=== PATIENT | female | born 1985 | race Caucasian/White ===

== ENCOUNTER → 2019-10-09 | Outpatient (CLI) | payer OTHER ==
[2019-10-10 13:59] LABS: FREE T4 1.33 ng/dL (0.76-1.46); THYROID STIM HORMONE (TSH) 2.03 uIU/mL (0.358-3.740)
== END | disposition home or self-care (01) ==
LOC: LAB 15:57
PROVIDERS: ATTEND Nurse Practitioner Women's Health
DX: E03.9 Hypothyroidism, unspecified (principal)
CPT/HCPCS: 36415; 84439; 84443; 86800

== ENCOUNTER 2019-10-21 10:30 | Emergency (ER) | payer OTHER ==
[~2019-10-21] VITALS: Ht 162.6 cm; Wt 90.9 kg
[2019-10-21] MEDS ORDERED: IV NORMAL SALINE 1,000ML 1,000 ML IV SCH (10:40)
--- NOTE | 2019-10-21 10:42 | PHYS DOC ---
Past History Past Medical History: Anemia, Bipolar, Depression, GERD, High Cholesterol, Hypertension, Hyperthyroid Past Surgical History: Cholecystectomy, , Tubal ligation Smoking: Non-smoker Alcohol Use: Rarely Drug Use: None General Adult EDM: Chief Complaint: NAUSEA/VOMITING/DIARRHEA HPI: HPI: Patient is a 33 year old female who presents for evaluation of mid and upper abdominal discomfort as well as recurring episodes of vomiting. Patient states she is had a recent fever but no chills. Furthermore she has had an ongoing chronic cough. Patient was seen by her doctor earlier this past week for similar complaints. She states that she was constipated was given both a fleets enema and magnesium citrate. She states that those did not resolve her symptoms. Patient denies being exposed anybody with known coinfection. She states she last had a COVID test about 10 days ago and was negative. Patient was hypertensive in triage. Patient is anxious and has a history of bipolar disorder Review of Systems: Review of Systems: Constitutional: has fever no chills Eyes: Denies change in visual acuity HENT: has nasal congestion but no sore throat Respiratory: has acute on chronic cough and shortness of breath Cardiovascular: has chest pressure but no edema GI: mid and upper abdominal pain with nausea and vomiting, no bloody stools or diarrhea : Denies dysuria Musculoskeletal: Denies back pain or joint pain Integument: Denies rash Neurologic: Denies headache, focal weakness or sensory changes Endocrine: Denies polyuria or polydipsia Lymphatic: Denies swollen glands Psychiatric: has depression and anxiety Heart Score: HEART Score for Chest Pain: HEART Score for Chest Pain Response (Comments) Value History Slighlty/Non-Suspicious 0 ECG Normal 0 Age < 45 0 Risk Factors 1 or 2 Risk Factors 1 Troponin < Normal Limit 0 Total 1 Risk Factors: Risk Factors: DM, Current or recent (<one month) smoker, HTN, HLP, family history of CAD, obesity. Risk Scores: Score 0 - 3: 2.5% MACE over next 6 weeks - Discharge Home Score 4 - 6: 20.3% MACE over next 6 weeks - Admit for Clinical Observation Score 7 - 10: 72.7% MACE over next 6 weeks - Early Invasive Strategies Allergies: Allergies: Allergies Coded Allergies Type Severity Reaction Last Updated Verified No Known Drug Allergies 10/21/19 No Physical Exam: PE: Constitutional: Well developed, well nourished, mild acute distress, non-toxic appearance. [] HENT: Normocephalic, atraumatic, bilateral external ears normal, oropharynx moist, no oral exudates, nose normal. [] Eyes: PERRL, EOMI, conjunctiva normal, no discharge. [] Neck: Normal range of motion, no tenderness, supple, no stridor. [] Cardiovascular:Heart rate regular rhythm, no murmur [] Lungs & Thorax: Bilateral breath sounds clear to auscultation [] Abdomen: Bowel sounds normal, soft, mild mid and epigastric tenderness, no masses, no pulsatile masses. [] Skin: Warm, dry, no erythema, no rash. [] Back: No tenderness. [] Extremities: No tenderness, no cyanosis, ROM intact, no edema. [] Neurologic: Alert and oriented X 3, normal motor function, normal sensory function, no focal deficits noted. [] Psychologic: Affect normal, judgement normal, mood abnormal. [] Current Patient Data: Labs: Laboratory Tests Test 10/21/19 11:00 10/21/19 11:39 Sodium Level 138 mmol/L Potassium Level 4.0 mmol/L Chloride Level 104 mmol/L Carbon Dioxide Level 24 mmol/L Anion Gap 10 Blood Urea Nitrogen 13 mg/dL Creatinine 1.2 mg/dL Estimated GFR (Cockcroft-Gault) 51.7 BUN/Creatinine Ratio 11 Glucose Level 115 mg/dL Calcium Level 8.9 mg/dL Total Bilirubin 0.2 mg/dL Aspartate Amino Transf (AST/SGOT) 23 U/L Alanine Aminotransferase (ALT/SGPT) 37 U/L Alkaline Phosphatase 117 U/L Total Protein 7.8 g/dL Albumin 3.6 g/dL Albumin/Globulin Ratio 0.9 Lipase 68 U/L Serum Test, Qualitative Negative White Blood Count 8.7 x10^3/uL Red Blood Count 4.93 x10^6/uL Hemoglobin 12.0 g/dL Hematocrit 37.7 % Mean Corpuscular Volume 76 fL Mean Corpuscular Hemoglobin 24 pg Mean Corpuscular Hemoglobin Concent 32 g/dL Red Cell Distribution Width 15.2 % Platelet Count 248 x10^3/uL Neutrophils (%) (Auto) 65 % Lymphocytes (%) (Auto) 23 % Monocytes (%) (Auto) 8 % Eosinophils (%) (Auto) 3 % Basophils (%) (Auto) 1 % Neutrophils # (Auto) 5.7 x10^3uL Lymphocytes # (Auto) 2.0 x10^3/uL Monocytes # (Auto) 0.7 x10^3/uL Eosinophils # (Auto) 0.3 x10^3/uL Basophils # (Auto) 0.0 x10^3/uL Current Medications Medications (Trade) Dose Ordered Sig/Laura Route PRN Reason Start Time Stop Time Status Last Admin Dose Admin Sodium Chloride 1,000 ml @ 1,000 mls/hr Q1H IV 10/21/19 10:40 10/21/19 11:39 DC 10/21/19 10:48 Ondansetron HCl (Zofran) 4 mg 1X ONCE IVP 10/21/19 10:45 10/21/19 10:57 DC 10/21/19 10:48 Pantoprazole Sodium (Protonix Vial) 40 mg 1X ONCE IVP 10/21/19 10:45 10/21/19 10:57 DC 10/21/19 10:48 EKG: EKG: [] Radiology/Procedures: Radiology/Procedures: [place] [address] IMAGING REPORT Signed PATIENT: REGINA SHETHCOUNT: [id number] : 1985 LOCATION: ER AGE: 33 SEX: F EXAM STATUS: REG ER ORD. PHYSICIAN: ECTOR SHEARER DO REASON: abd pain, vomiting, cough PROCEDURE: ACUTE ABDOMEN SERIES Examination: ACUTE ABDOMEN SERIES History: Reason: abd pain, vomiting, cough / Spl. Instructions: / History: Comparison/Correlation: None Findings: Frontal view chest is obtained. Supine and upright views of the abdomen were obtained. Heart size and pulmonary vasculature are normal. No pneumothorax or infiltrate. No pleural effusion. Right upper quadrant surgical clips are present. Moderate quantity of stool in the bowel is noted. No significant fluid levels in bowel. No bowel obstruction. No suspicious abdominal calcification. Left pelvic calcification probably represents a phlebolith. Surgical clip overlies the L4 vertebral body level on the left. No subdiaphragmatic extraluminal gas. Impression: No infiltrate. No bowel obstruction. Electronically signed by: Smith Ogden MD (10/21/2019 11:21 AM) [id number] DICTATED AND SIGNED BY: SMITH OGDEN MD DATE: 10/21/19 112 CC: PCP,[facility]OSS; ECTOR SHEARER DO ~ [] Course & Med Decision Making: Course & Med Decision Making Pertinent Labs and Imaging studies reviewed. (See chart for details) [] Dragon Disclaimer: Dragon Disclaimer: This electronic medical record was generated, in whole or in part, using a voice recognition dictation system. 1210 patient stable. She she urinated on her own without collecting a sample since arrival. We will attempt again to get another urine sample Departure Departure: Impression: Primary Impression: Acute bronchitis Qualified Codes: J20.9 - Acute bronchitis, unspecified Additional Impressions: Acute urinary tract infection Upper abdominal pain Nausea & vomiting Qualified Codes: R11.2 - Nausea with vomiting, unspecified Disposition: 01 HOME/RESIDENCE PRIOR TO ADM Condition: STABLE Referrals: [facility] (PCP) Patient Instructions: Abdominal Pain (Nonspecific), Bronchitis, Nausea and Vomiting, Urinary Tract Infection Additional Instructions: [place] diet, no spicy foods, continue your Protonix. Take your nausea medication and bladder infection medication as directed. Your COVID swab tests are pending. Follow protocol directions until those results are knownYou have been tested for or diagnosed with COVID-19. It is an infection caused by a new type of coronavirus. COVID-19 will cause cold-like or mild flu symptoms in most. It can cause more severe symptoms like problems breathing in some. There is no treatment for COVID-19. The body will clear the infection over time. Self-care will help to ease discomfort. Steps to Take: Self-Care Rest as needed. Healthy habits may help you feel better. Steps include: Choose healthy foods including fruits and vegetables. Drink water throughout the day. Get plenty of sleep each night. If you smoke, try to quit. It may ease breathing. Avoid alcohol. Keep Others Healthy The virus can spread to others. Droplets are released every time you sneeze or cough. The droplets can get into the mouth, nose, or eyes of people near you and lead to infection. To lower the chances of spreading COVID-19 to others: Stay at home until your doctor has said it is safe to leave. If you tested positive this will mean staying isolated until both of the following are true: At least 7 days have passed since the start of illness. You are free of fever for at least 72 hours without the use of medicine. During this time: - Avoid public areas, events, or transportation. Do not return to work or school until your doctor has said it is safe to do so. - Call ahead if you need to go to a medical center. Let them know you may have COVID-19. It will help them guide you where to go. They may also ask you to wear a facemask when you come to the office. - If you call for emergency medical services, let them know you may have COVID- 19. While at home: - Try to avoid close contact with others. Stay about 6 feet away. - If possible, spend most of your time in a separate room from others. - Use a face mask if you will be in close contact with others such as sharing a room or vehicle. - Have someone wipe down common surfaces in the home. Use household wireless consultant every day on areas like doorknobs, counters, or sinks. - Cough or sneeze into a tissue. Throw the tissue away right after use. If a tissue is not available, cough or sneeze into your elbow. - Wash your hands often. Wash them after sneezing or coughing. Use soap and water and wash for at least 20 seconds. Alcohol based hand venetian blind cleaner and repairer can be used if soap and water is not available. - Do not prepare food for others. Avoid sharing personal items like forks, spoons, or toothbrushes. - Avoid close contact with pets while you are sick. There is no evidence of the virus passing to pets. This is a safety step until more is known about this virus. Isolation can be frustrating. Social interaction can help. Keep in touch with friends and family through phone and tech options. You can still interact with others in your home, just keep a safe distance of about 6 feet. Follow-up: Your doctors office will check in with you to see if there are any changes in your health. You may be asked to keep track of symptoms to share with them. They will also let you know when you are clear to be in public again. Problems to Look Out For: Contact your doctor if your recovery is not going as you expect. Get emergency care if you have problems such as: - Trouble breathing - Nonstop chest pain or pressure - Changes in awareness, confusion, or problems waking - Lips or face have bluish color - Worsening of symptoms If you think you have an emergency, call for emergency medical services right away. As taken from [facility] Cephalexin (CEPHALEXIN) 500 Mg Capsule 1 CAP PO QID for UTI , #28 CAP Prov: ECTOR SHEARER DO 10/21/19 Benzonatate (TESSALON PERLE) 100 Mg Capsule 1 CAP PO TID for cough, #21 CAP Prov: ECTOR SHEARER DO 10/21/19 Ondansetron Hcl (ZOFRAN) 4 Mg Tablet 1 TAB PO PRN Q6HRS PRN for NAUSEA, #8 TAB Prov: ECTOR SHEARER DO 10/21/19 Justification of Admission: Justification of Admission: Justification of Admission Dx: N/A COVID-19 Assessment COVID-19 Patient Risks: Age 65 or older: No Sign of co-morbidity: Yes Exp to person + for COVID: No Exp to PUI: No Travel from affected area: No Lower respiratory symptoms: Yes Fever: Yes Other: No PPE Use: Full PPE with N95 mask or PAPR: Yes ECTOR SHEARER DO Oct 21, 2019 10:42
[2019-10-21] MEDS ORDERED: PANTOPRAZOLE IV 40 MG VIAL. IVP ONE (10:45)
[2019-10-21] MEDS ORDERED: ONDANSETRON PF 4 MG/2 ML VIAL. IVP ONE (10:45)
--- NOTE | 2019-10-21 11:25 | RAD ---
Examination: ACUTE ABDOMEN SERIES History: Reason: abd pain, vomiting, cough / Spl. Instructions: / History: Comparison/Correlation: None Findings: Frontal view chest is obtained. Supine and upright views of the abdomen were obtained. Heart size and pulmonary vasculature are normal. No pneumothorax or infiltrate. No pleural effusion. Right upper quadrant surgical clips are present. Moderate quantity of stool in the bowel is noted. No significant fluid levels in bowel. No bowel obstruction. No suspicious abdominal calcification. Left pelvic calcification probably represents a phlebolith. Surgical clip overlies the L4 vertebral body level on the left. No subdiaphragmatic extraluminal gas. Impression: No infiltrate. No bowel obstruction. Electronically signed by: Smith Watson MD (10/21/2019 11:21 AM) [id number]
[2019-10-21 11:28] LABS: CALCIUM 8.9 mg/dL (8.5-10.1); CREATININE 1.2 mg/dL (0.6-1.0); GFR 51.7
[2019-10-21 11:33] LABS: PREG TEST PT QUAL NEGATIVE (NEG)
[2019-10-21 11:34] LABS: ALBUMIN 3.6 g/dL (3.4-5.0); ALBUMIN/GLOBULIN RATIO 0.9 (1.0-1.7); TOTAL BILIRUBIN 0.2 mg/dL (0.2-1.0); TOTAL PROTEIN 7.8 g/dL (6.4-8.2)
[2019-10-21 11:40] VITALS: BP 168/130
[2019-10-21 11:56] LABS: BASO % 1 % (0-3); EOS # 0.3 x10^3/uL (0.0-0.7); EOS % 3 % (0-3); HEMATOCRIT 37.7 % (36.0-47.0); LYMPH % 23 % (24-48); MEAN CORPUSCULAR HEMOGLOBIN 24 pg (25-35); MEAN CORPUSCULAR HGB CONC 32 g/dL (31-37); MEAN CORPUSCULAR VOLUME 76 fL (79-100); MONO # 0.7 x10^3/uL (0.0-1.1); MONO % 8 % (0-9); NEUT # 5.7 x10^3uL (1.8-7.7); NEUT % 65 % (31-73); PLATELET COUNT 248 x10^3/uL (140-400); RED BLOOD COUNT 4.93 x10^6/uL (3.50-5.40); RED CELL DISTRIBUTION WIDTH 15.2 % (11.5-14.5); WHITE BLOOD COUNT 8.7 x10^3/uL (4.0-11.0)
[2019-10-21 13:03] LABS: BILIRUBIN,URINE NEG (NEG); CLARITY,URINE HAZY; COLOR,URINE YELLOW; GLUCOSE,URINE NEG (NEG); NITRITE,URINE NEG (NEG); UROBILINOGEN,URINE 0.2 mg/dL (0.2 mg/dL)
[2019-10-21] MEDS ORDERED: BENZ100C PO (13:46)
[2019-10-21] MEDS ORDERED: CEPH500C PO (13:46)
[2019-10-21] MEDS ORDERED: ONDA4TAB7 PO (13:46)
== END 2019-10-21 13:51 | disposition home or self-care (01) ==
LOC: ER 10:30
DX: J20.9 Acute bronchitis, unspecified (principal); N39.0 Urinary tract infection, site not specified; R11.2 Nausea with vomiting, unspecified; K21.9 Gastro-esophageal reflux disease without esophagitis; E78.00 Pure hypercholesterolemia, unspecified; I10 Essential (primary) hypertension; E03.9 Hypothyroidism, unspecified; Z20.828 Contact with and (suspected) exposure to other viral communicable diseases; Z86.2 Personal history of diseases of the blood and blood-forming organs and certain disorders involving the immune mechanism; Z90.49 Acquired absence of other specified parts of digestive tract; Z98.890 Other specified postprocedural states; Z98.51 Tubal ligation status
CPT/HCPCS: 36415; 74022; 80053; 81003; 83690; 84703; 85025; 96361; 96374; 96375; 99284; C9113; J2405; J7030; U0003

== ENCOUNTER 2019-11-19 07:52 | Emergency (ER) | payer OTHER ==
[~2019-11-19] VITALS: Ht 162.6 cm; Wt 90.0 kg
[~2019-11-19 07:52] MED LIST: BENZ100C PO; CEPH500C PO; ONDA4TAB7 PO
--- NOTE | 2019-11-19 08:09 | PHYS DOC ---
Past History Past Medical History: Anemia, Bipolar, Depression, GERD, High Cholesterol, Hypertension, Hyperthyroid Past Surgical History: Cholecystectomy, , Tubal ligation Smoking: Non-smoker Alcohol Use: None Drug Use: None General Adult EDM: Chief Complaint: CHEST PAIN HPI: HPI: 34-year-old female with past medical history significant for hypertension and anxiety presents secondary to complaint of chest pain. The patient reports that yesterday while driving with some friends she started to develop a sensation of warmth go through her body along with some tingling. She experience some chest tightness. She states that she has had these symptoms on and off since last night and this morning is still complaining of some mild chest pressure. No medications were taken prior to arrival. The patient states she is not short of breath and denies being anxious. Review of Systems: Review of Systems: All other systems negative except as documented in HPI. Heart Score: HEART Score for Chest Pain: HEART Score for Chest Pain Response (Comments) Value History Slighlty/Non-Suspicious 0 Age < 45 0 Risk Factors 1 or 2 Risk Factors 1 Total 1 Risk Factors: Risk Factors: DM, Current or recent (<one month) smoker, HTN, HLP, family history of CAD, obesity. Risk Scores: Score 0 - 3: 2.5% MACE over next 6 weeks - Discharge Home Score 4 - 6: 20.3% MACE over next 6 weeks - Admit for Clinical Observation Score 7 - 10: 72.7% MACE over next 6 weeks - Early Invasive Strategies Allergies: Allergies: Allergies Coded Allergies Type Severity Reaction Last Updated Verified No Known Drug Allergies 10/21/19 No Physical Exam: PE: Constitutional: Well developed, well nourished, no acute distress, non-toxic appearance. [] HENT: Normocephalic, atraumatic, bilateral external ears normal, oropharynx moist, no oral exudates, nose normal. [] Eyes: PERRLA, EOMI, conjunctiva normal, no discharge. [] Neck: Normal range of motion, no tenderness, supple, no stridor. [] Cardiovascular:Heart rate regular rhythm, no murmur [] Lungs & Thorax: Bilateral breath sounds clear to auscultation [] Abdomen: Bowel sounds normal, soft, no tenderness, no masses, no pulsatile masses. [] Skin: Warm, dry, no erythema, no rash. [] Back: No tenderness, no CVA tenderness. [] Extremities: No tenderness, no cyanosis, no clubbing, ROM intact, no edema. [] Neurologic: Alert and oriented X 3, normal motor function, normal sensory function, no focal deficits noted. [] Psychologic: Affect normal, judgement normal, mood normal. [] EKG: EKG: EKG shows a normal sinus rhythm without ST changes, ventricular rate of 80, normal intervals. Radiology/Procedures: Radiology/Procedures: Chest x-ray negative. Course & Med Decision Making: Course & Med Decision Making Pertinent Labs and Imaging studies reviewed. (See chart for details) 0808: Patient seen for chest discomfort. Her symptoms are rather vague but gi jesse her history of hypertension and obesity will work her up for cardiac etiology. Give aspirin. EKG is normal. This sounds more like an anxiety attack potentially. 0921: Work-up is negative. Patient will be discharged home at this time as she has no evidence of cardiac abnormality. Recommend rest and taking antianxiety medication when she gets home. Barney Disclaimer: Barney Disclaimer: This electronic medical record was generated, in whole or in part, using a voice recognition dictation system. Departure Departure: Impression: Primary Impression: Non-cardiac chest pain Disposition: 01 HOME/RESIDENCE PRIOR TO ADM Condition: STABLE Referrals: JUANIS GAMINO (PCP) Follow-up for ongoing discomfort Patient Instructions: Chest Pain (Nonspecific) Additional Instructions: Recommend rest and taking your antianxiety medication when you get home. Justification of Admission: Justification of Admission: Justification of Admission Dx: N/A LILLI MICHAUD DO Nov 19, 2019 08:09
--- NOTE | 2019-11-19 08:11 | EKG ---
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
[2019-11-19] MEDS ORDERED: ASPIRIN CHEWABLE 81 MG TABLET. PO ONE (08:15)
[2019-11-19 08:32] LABS: BASO # 0.1 x10^3/uL (0.0-0.2); BASO % 1 % (0-3); EOS # 0.2 x10^3/uL (0.0-0.7); EOS % 3 % (0-3); HEMOGLOBIN 12.2 g/dL (12.0-15.5); LYMPH # 2.2 x10^3/uL (1.0-4.8); LYMPH % 24 % (24-48); MEAN CORPUSCULAR HEMOGLOBIN 24 pg (25-35); MEAN CORPUSCULAR HGB CONC 32 g/dL (31-37); MEAN CORPUSCULAR VOLUME 76 fL (79-100); MONO # 0.7 x10^3/uL (0.0-1.1); MONO % 8 % (0-9); NEUT % 65 % (31-73); PLATELET COUNT 255 x10^3/uL (140-400); RED CELL DISTRIBUTION WIDTH 15.8 % (11.5-14.5); WHITE BLOOD COUNT 9.2 x10^3/uL (4.0-11.0)
[2019-11-19 08:41] LABS: ANION GAP 7 (6-14); BLOOD UREA NITROGEN 13 mg/dL (7-20); CARBON DIOXIDE 28 mmol/L (21-32); CHLORIDE 104 mmol/L (98-107); GFR 63.5; GLUCOSE 110 mg/dL (70-99); POTASSIUM 3.7 mmol/L (3.5-5.1); SODIUM 139 mmol/L (136-145)
[2019-11-19 08:43] VITALS: BP 154/100
[2019-11-19 08:58] LABS: LIPASE 49 U/L (73-393); MAGNESIUM 2.1 mg/dL (1.8-2.4)
--- NOTE | 2019-11-19 09:00 | RAD ---
EXAM: Chest radiograph 11/19/2019 8:03 AM CLINICAL INDICATION: Chest pain, cough COMPARISON: Abdominal series radiograph 10/21/2019 TECHNIQUE: AP upright view of the chest FINDINGS: The heart and mediastinum are normal. Lungs are well-expanded and clear. No consolidation, pleural effusion, or pneumothorax. Pulmonary vascularity is normal. The thoracic skeleton is intact. IMPRESSION: Normal chest radiograph. Electronically signed by: Chio Tello MD (11/19/2019 8:58 AM) [id number]
[2019-11-19 09:29] LABS: BARBITURATES NEG (NEG); BENZODIAZEPINES NEG (NEG); CANNABINOIDS POS (NEG); COCAINE NEG (NEG); METHADONE NEG (NEG); OPIATES NEG (NEG); PHENCYCLIDINE NEG (NEG)
[2019-11-19 09:31] LABS: AMPHETAMINE/METHAMPHETAMINE NEG (NEG)
== END 2019-11-19 09:40 | disposition home or self-care (01) ==
LOC: ER 07:52
DX: R07.89 Other chest pain (principal); F31.9 Bipolar disorder, unspecified; K21.9 Gastro-esophageal reflux disease without esophagitis; E78.00 Pure hypercholesterolemia, unspecified; I10 Essential (primary) hypertension; E03.9 Hypothyroidism, unspecified; Z86.2 Personal history of diseases of the blood and blood-forming organs and certain disorders involving the immune mechanism
CPT/HCPCS: 36415; 71045; 80048; 80307; 81025; 82553; 83690; 83735; 83874; 83880; 84484; 85025; 85610; 85730; 93005; 99285

== ENCOUNTER 2019-11-29 21:17 | Emergency (ER) | payer OTHER ==
[~2019-11-29] VITALS: Ht 162.6 cm; Wt 90.0 kg
[2019-11-29] MEDS ORDERED: KETOROLAC 30 MG/ML VIAL. IM ONE (22:00)
--- NOTE | 2019-11-29 22:28 | PHYS DOC ---
Past History Past Medical History: High Cholesterol, Heart Disease, Hypertension Past Surgical History: No Surgical History Smoking: Non-smoker Alcohol Use: None Drug Use: None General Adult EDM: Chief Complaint: RIB PAIN HPI: HPI: Patient is a 34 year old female who presents for evaluation of left-sided chest and rib area pain. Onset of symptoms over the past 24 hours. She states it is worse with movement. Patient has had a chronic cough "for months". Patient has had multiple negative COVID swabs last one being 2 to 3 weeks ago. Her vital signs are otherwise stable. Patient has had multiple work-ups for similar complaints over the past 2 weeks. She has had repeated normal EKG studies. Patient is been diagnosed with panic attacks. Patient's last period was November 11. Patient is nontoxic-appearing. Patient furthermore has a history of acid reflux and is on Protonix and Tums. Patient does not have a gallbladder. Review of Systems: Review of Systems: Constitutional: Denies fever or chills Eyes: Denies change in visual acuity HENT: Denies nasal congestion or sore throat Respiratory: has cough no shortness of breath Cardiovascular: left sided chest pain no edema GI: left upper abdominal pain, no nausea or vomiting, no bloody stools or diarrhea : Denies dysuria Musculoskeletal: Denies back pain or joint pain Integument: Denies rash Neurologic: Denies headache, focal weakness or sensory changes Endocrine: Denies polyuria or polydipsia Lymphatic: Denies swollen glands Psychiatric: has anxiety Heart Score: Risk Factors: Risk Factors: DM, Current or recent (<one month) smoker, HTN, HLP, family history of CAD, obesity. Risk Scores: Score 0 - 3: 2.5% MACE over next 6 weeks - Discharge Home Score 4 - 6: 20.3% MACE over next 6 weeks - Admit for Clinical Observation Score 7 - 10: 72.7% MACE over next 6 weeks - Early Invasive Strategies Current Medications: Current Meds: Current Medications Medications (Trade) Dose Ordered Sig/Laura Start Time Stop Time Status Last Admin Dose Admin Ketorolac Tromethamine (Toradol 30mg Vial) 30 mg 1X ONCE 11/29/19 22:00 11/29/19 22:01 DC 11/29/19 22:00 30 MG Allergies: Allergies: Allergies Coded Allergies Type Severity Reaction Last Updated Verified No Known Drug Allergies 10/21/19 No Physical Exam: PE: Constitutional: Well developed, well nourished, mild acute distress, non-toxic appearance. [] HENT: Normocephalic, atraumatic, bilateral external ears normal, oropharynx moist, no oral exudates, nose normal. [] Eyes: PERRL, EOMI, conjunctiva normal, no discharge. [] Neck: Normal range of motion, no tenderness, supple, no stridor. [] Cardiovascular:Heart rate regular rhythm, no murmur [] Lungs & Thorax: Bilateral breath sounds clear to auscultation [] Abdomen: Bowel sounds normal, soft, minimal left upper abdominal tenderness, no masses, no pulsatile masses. [] Skin: Warm, dry, no erythema, no rash. [] Back: No tenderness, no CVA tenderness. [] Extremities: No tenderness, no cyanosis, ROM intact, no edema. [] Neurologic: Alert and oriented X 3, normal motor function, normal sensory function, no focal deficits noted. [] Psychologic: Affect normal, judgement normal, mood mild anxious. [] Current Patient Data: Labs: Laboratory Tests Test 11/29/19 22:05 White Blood Count 8.6 x10^3/uL Red Blood Count 4.62 x10^6/uL Hemoglobin 11.1 g/dL Hematocrit 35.5 % Mean Corpuscular Volume 77 fL Mean Corpuscular Hemoglobin 24 pg Mean Corpuscular Hemoglobin Concent 31 g/dL Red Cell Distribution Width 15.5 % Platelet Count 261 x10^3/uL Neutrophils (%) (Auto) 61 % Lymphocytes (%) (Auto) 28 % Monocytes (%) (Auto) 7 % Eosinophils (%) (Auto) 3 % Basophils (%) (Auto) 1 % Neutrophils # (Auto) 5.2 x10^3uL Lymphocytes # (Auto) 2.4 x10^3/uL Monocytes # (Auto) 0.6 x10^3/uL Eosinophils # (Auto) 0.3 x10^3/uL Basophils # (Auto) 0.1 x10^3/uL Sodium Level 138 mmol/L Potassium Level 4.0 mmol/L Chloride Level 102 mmol/L Carbon Dioxide Level 27 mmol/L Anion Gap 9 Blood Urea Nitrogen 11 mg/dL Creatinine 0.9 mg/dL Estimated GFR (Cockcroft-Gault) 71.7 BUN/Creatinine Ratio 12 Glucose Level 93 mg/dL Calcium Level 9.3 mg/dL Total Bilirubin 0.2 mg/dL Aspartate Amino Transf (AST/SGOT) 20 U/L Alanine Aminotransferase (ALT/SGPT) 36 U/L Alkaline Phosphatase 104 U/L Troponin I Quantitative < 0.017 ng/mL Total Protein 7.3 g/dL Albumin 3.7 g/dL Albumin/Globulin Ratio 1.0 Lipase 58 U/L Current Medications Medications (Trade) Dose Ordered Sig/Laura Route PRN Reason Start Time Stop Time Status Last Admin Dose Admin Ketorolac Tromethamine (Toradol 30mg Vial) 30 mg 1X ONCE IM 11/29/19 22:00 11/29/19 22:01 DC 11/29/19 22:00 EKG: EKG: EKG showed normal sinus rhythm, inverted T waves lead III, otherwise essentially normal EKG, not STEMI [] Radiology/Procedures: Radiology/Procedures: [][place] [address] IMAGING REPORT Signed PATIENT: REGINA SHETH MACCOUNT: [id number] : 1985 LOCATION: ER AGE: 34 SEX: F EXAM STATUS: REG ER ORD. PHYSICIAN: ECTOR SHEARER DO REASON: left rib pain PROCEDURE: RIBS LEFT AND PA CHEST INDICATION: Reason: left rib pain / Spl. Instructions: / History: COMPARISON: Chest x-ray November 19, 2019 IMPRESSION: 5 views of the chest and left RIBS obtained. Cardiac silhouette is similar to prior. No new region of airspace consolidation. A definite acute fractures not seen. Electronically signed by: Shira Salmon MD (11/29/2019 11:22 PM) [id number] DICTATED AND SIGNED BY: SHIRA SALMON MD DATE: 11/29/192321 CC: PCP,UNKNOWN; ECTOR SHEARER DO ~ Course & Med Decision Making: Course & Med Decision Making Pertinent Labs and Imaging studies reviewed. (See chart for details) 2335 stable, feeling better at this time. Pain is highly reproducible. Chest x-ray including rib series did not show evidence of pneumonia, pneumothorax or rib fractures. Cardiac labs and regular labs unremarkable. Patient does not have pancreatitis. EKG is stable and normal. Patient has not had any known exposure to COVID. She states the pain started today when she was at school in the biology lab. There is no known trauma. I suspect chest wall inflammation such as costochondritis. No additional prescription required. She is already on an acid blocking medication, anti-inflammatory and muscle relaxer. Dragon Disclaimer: Dragon Disclaimer: This electronic medical record was generated, in whole or in part, using a voice recognition dictation system. Departure Departure: Impression: Primary Impression: Left-sided chest wall pain Disposition: HOME/RESIDENCE PRIOR TO ADM Condition: STABLE Referrals: PCP,UNKNOWN (PCP) Patient Instructions: Chest Wall Pain, [id number] Additional Instructions: Rest, no heavy lifting, call and see your doctor right away and follow, the cause of your pain is unclear but no dangerous findings tonight in the ER. Chest x-ray and rib series x-rays were clear. Your EKG was normal. Your heart blood work and complete blood counts were all normal Justification of Admission: Justification of Admission: Justification of Admission Dx: N/A ECTOR SHEARER DO Nov 29, 2019 22:28
[2019-11-29 22:36] LABS: BASO # 0.1 x10^3/uL (0.0-0.2); BASO % 1 % (0-3); EOS # 0.3 x10^3/uL (0.0-0.7); EOS % 3 % (0-3); HEMATOCRIT 35.5 % (36.0-47.0); HEMOGLOBIN 11.1 g/dL (12.0-15.5); LYMPH # 2.4 x10^3/uL (1.0-4.8); LYMPH % 28 % (24-48); MEAN CORPUSCULAR HEMOGLOBIN 24 pg (25-35); MEAN CORPUSCULAR HGB CONC 31 g/dL (31-37); MEAN CORPUSCULAR VOLUME 77 fL (79-100); MONO # 0.6 x10^3/uL (0.0-1.1); MONO % 7 % (0-9); NEUT # 5.2 x10^3uL (1.8-7.7); NEUT % 61 % (31-73); PLATELET COUNT 261 x10^3/uL (140-400); RED BLOOD COUNT 4.62 x10^6/uL (3.50-5.40); RED CELL DISTRIBUTION WIDTH 15.5 % (11.5-14.5); WHITE BLOOD COUNT 8.6 x10^3/uL (4.0-11.0)
[2019-11-29 22:42] LABS: CALCIUM 9.3 mg/dL (8.5-10.1); CREATININE 0.9 mg/dL (0.6-1.0); GFR 71.7
[2019-11-29 22:48] LABS: ALBUMIN 3.7 g/dL (3.4-5.0); TOTAL BILIRUBIN 0.2 mg/dL (0.2-1.0); TOTAL PROTEIN 7.3 g/dL (6.4-8.2)
--- NOTE | 2019-11-29 23:24 | RAD ---
INDICATION: Reason: left rib pain / Spl. Instructions: / History: COMPARISON: Chest x-ray November 19, 2019 IMPRESSION: 5 views of the chest and left RIBS obtained. Cardiac silhouette is similar to prior. No new region of airspace consolidation. A definite acute fractures not seen. Electronically signed by: Maximino Salmon MD (11/29/2019 11:22 PM) [id number]
[2019-11-29 23:50] VITALS: BP 160/97
--- NOTE | 2019-11-30 14:57 | EKG ---
[address] [address] Test Date: 2019-11-29 Test Time: 22:18:03 Pat Name: REGINA SHETH Department: Room: Gender: F Editor At Large: CAROLYNE : 1985 Requested By: ECTOR SHEARER Order Number: [id number] Reading MD: Measurements Intervals [place] Rate: 80 P: 34 WI: 164 QRS: 31 QRSD: 76 T: 19 QT: 350 QTc: 407 Interpretive Statements SINUS RHYTHM NORMAL ECG RI6.02 No previous ECG available for comparison
== END 2019-11-29 23:50 | disposition home or self-care (01) ==
LOC: ER 21:17
DX: R07.81 Pleurodynia (principal); R10.12 Left upper quadrant pain; R05 Cough; E78.00 Pure hypercholesterolemia, unspecified; I11.9 Hypertensive heart disease without heart failure
CPT/HCPCS: 36415; 71101; 80053; 83690; 84484; 85025; 93005; 96372; 99285; J1885

== ENCOUNTER 2019-12-10 20:16 | Emergency (ER) | payer OTHER ==
[~2019-12-10] VITALS: Ht 162.6 cm; Wt 91.9 kg
--- NOTE | 2019-12-10 21:23 | RAD ---
Single view chest dated 12/10/2019: No comparison available. Clinical Indication: Cough and fever. Findings: Single upright portable exam of the chest was performed. Heart size and mediastinal contours are within normal limits given technique. The lungs are clear without evidence of focal consolidation. Vascular interstitium is within normal limits. Impression:: Negative portable chest. Electronically signed by: Aubrey Jason MD (12/10/2019 9:21 PM) LUCILA
[2019-12-10 21:25] LABS: BASO # 0.1 x10^3/uL (0.0-0.2); BASO % 1 % (0-3); EOS # 0.2 x10^3/uL (0.0-0.7); EOS % 2 % (0-3); HEMOGLOBIN 11.3 g/dL (12.0-15.5); LYMPH # 2.5 x10^3/uL (1.0-4.8); LYMPH % 23 % (24-48); MEAN CORPUSCULAR HEMOGLOBIN 24 pg (25-35); MEAN CORPUSCULAR HGB CONC 31 g/dL (31-37); MEAN CORPUSCULAR VOLUME 77 fL (79-100); MONO # 0.9 x10^3/uL (0.0-1.1); MONO % 8 % (0-9); NEUT # 7.1 x10^3uL (1.8-7.7); NEUT % 65 % (31-73); PLATELET COUNT 258 x10^3/uL (140-400); RED BLOOD COUNT 4.68 x10^6/uL (3.50-5.40); RED CELL DISTRIBUTION WIDTH 15.9 % (11.5-14.5); WHITE BLOOD COUNT 10.8 x10^3/uL (4.0-11.0)
--- NOTE | 2019-12-10 21:31 | PHYS DOC ---
Past History Past Medical History: Anxiety, Bipolar, Depression, High Cholesterol, Heart Disease, Hypertension, Hypothyroid Past Surgical History: Cholecystectomy, Smoking: Non-smoker Alcohol Use: None Drug Use: None General Adult EDM: Chief Complaint: COUGH HPI: HPI: 34-year-old female presents with 4-day history of increasing cough and fatigue. Patient has a dry cough at baseline, but this is different. Patient just keyla brooks traveled out of state to go to a . She wore a mask all the time, but does not know she came in contact with anyone with COVID-19. This is what she is worried about. She has had a fever up to 102. She took Tylenol 1 hour prior to arrival. Her temperature on arrival was normal. Review of Systems: Review of Systems: Constitutional: Fever Eyes: Denies change in visual acuity HENT: Denies nasal congestion or sore throat Respiratory: cough with shortness of breath Cardiovascular: Denies chest pain or edema GI: Denies abdominal pain, nausea, vomiting, bloody stools or diarrhea : Denies dysuria Musculoskeletal: Denies back pain or joint pain Integument: Denies rash Neurologic: Denies headache, focal weakness or sensory changes Endocrine: Denies polyuria or polydipsia Lymphatic: Denies swollen glands Psychiatric: Denies depression or anxiety Heart Score: Risk Factors: Risk Factors: DM, Current or recent (<one month) smoker, HTN, HLP, family history of CAD, obesity. Risk Scores: Score 0 - 3: 2.5% MACE over next 6 weeks - Discharge Home Score 4 - 6: 20.3% MACE over next 6 weeks - Admit for Clinical Observation Score 7 - 10: 72.7% MACE over next 6 weeks - Early Invasive Strategies Allergies: Allergies: Allergies Coded Allergies Type Severity Reaction Last Updated Verified No Known Drug Allergies 10/21/19 No Physical Exam: PE: Constitutional: Well developed, well nourished, no acute distress, non-toxic appearance. [] HENT: Normocephalic, atraumatic, bilateral external ears normal, oropharynx moist, no oral exudates, nose normal. [] Eyes: PERRLA, EOMI, conjunctiva normal, no discharge. [] Neck: Normal range of motion, no tenderness, supple, no stridor. [] Cardiovascular: Heart rate regular rhythm, no murmur [] Lungs & Thorax: Intermittent cough. Bilateral breath sounds clear to auscultation [] Abdomen: Bowel sounds normal, soft, no tenderness, no masses, no pulsatile masses. [] Skin: Warm, dry, no erythema, no rash. [] Back: No tenderness, no CVA tenderness. [] Extremities: No tenderness, no cyanosis, no clubbing, ROM intact, no edema. [] Neurologic: Alert and oriented X 3, normal motor function, normal sensory function, no focal deficits noted. [] Psychologic: Affect normal, judgement normal, mood normal. [] Current Patient Data: Vital Signs: Vital Signs Date Time Temp Pulse Resp B/P (MAP) Pulse Ox O2 Delivery O2 Flow Rate FiO2 12/10/19 20:30 98.2 90 24 176/104 (128) 99 Room Air EKG: EKG: [] Radiology/Procedures: Radiology/Procedures: [] Impressions: Single view chest dated 12/10/2019: No comparison available. Clinical Indication: Cough and fever. Findings: Single upright portable exam of the chest was performed. Heart size and mediastinal contours are within normal limits given technique. The lungs are clear without evidence of focal consolidation. Vascular interstitium is within normal limits. Impression:: Negative portable chest. Electronically signed by: Aubrey Jason MD (12/10/2019 9:21 PM) [facility] DICTATED AND SIGNED BY: AUBREY JASON MD DATE: 12/10/192120 CC: ZONIA JEFFERS DO; PCP,UNKNOWN ~ Course & Med Decision Making: Course & Med Decision Making Pertinent Labs and Imaging studies reviewed. (See chart for details) The patient's labs are unremarkable. She is not . Her urinalysis is negative for infection. Her chest x-ray is negative for acute findings. It is certainly possible that the patient could have COVID-19. I have advised that she quarantine herself until she get her official results. These are pending. She does not meet admission criteria. She is stable for discharge at this time. [] Dragon Disclaimer: Barney Disclaimer: This electronic medical record was generated, in whole or in part, using a voice recognition dictation system. Departure Departure: Impression: Primary Impression: Suspected COVID-19 virus infection Disposition: HOME/RESIDENCE PRIOR TO ADM Condition: STABLE Referrals: PCP,UNKNOWN (PCP) Additional Instructions: You have been tested for or diagnosed with COVID-19. It is an infection caused by a new type of coronavirus. COVID-19 will cause cold-like or mild flu symptoms in most. It can cause more severe symptoms like problems breathing in some. There is no treatment for COVID-19. The body will clear the infection over time. Self-care will help to ease discomfort. Steps to Take: Self-Care Rest as needed. Healthy habits may help you feel better. Steps include: Choose healthy foods including fruits and vegetables. Drink water throughout the day. Get plenty of sleep each night. If you smoke, try to quit. It may ease breathing. Avoid alcohol. Keep Others Healthy The virus can spread to others. Droplets are released every time you sneeze or cough. The droplets can get into the mouth, nose, or eyes of people near you and lead to infection. To lower the chances of spreading COVID-19 to others: Stay at home until your doctor has said it is safe to leave. If you tested positive this will mean staying isolated until both of the following are true: At least 7 days have passed since the start of illness. You are free of fever for at least 72 hours without the use of medicine. During this time: - Avoid public areas, events, or transportation. Do not return to work or school until your doctor has said it is safe to do so. - Call ahead if you need to go to a medical center. Let them know you may have COVID-19. It will help them guide you where to go. They may also ask you to wear a facemask when you come to the office. - If you call for emergency medical services, let them know you may have COVID- 19. While at home: - Try to avoid close contact with others. Stay about 6 feet away. - If possible, spend most of your time in a separate room from others. - Use a face mask if you will be in close contact with others such as sharing a room or vehicle. - Have someone wipe down common surfaces in the home. Use household goodwill ambassador every day on areas like doorknobs, counters, or sinks. - Cough or sneeze into a tissue. Throw the tissue away right after use. If a tissue is not available, cough or sneeze into your elbow. - Wash your hands often. Wash them after sneezing or coughing. Use soap and water and wash for at least 20 seconds. Alcohol based hand sleeping room cleaner can be used if soap and water is not available. - Do not prepare food for others. Avoid sharing personal items like forks, spoons, or toothbrushes. - Avoid close contact with pets while you are sick. There is no evidence of the virus passing to pets. This is a safety step until more is known about this virus. Isolation can be frustrating. Social interaction can help. Keep in touch with friends and family through phone and tech options. You can still interact with others in your home, just keep a safe distance of about 6 feet. Follow-up: Your doctors office will check in with you to see if there are any changes in your health. You may be asked to keep track of symptoms to share with them. They will also let you know when you are clear to be in public again. Problems to Look Out For: Contact your doctor if your recovery is not going as you expect. Get emergency care if you have problems such as: - Trouble breathing - Nonstop chest pain or pressure - Changes in awareness, confusion, or problems waking - Lips or face have bluish color - Worsening of symptoms If you think you have an emergency, call for emergency medical services right away. As taken from [facility] ZONIA JEFFERS DO Dec 10, 2019 21:31
[2019-12-10 21:35] LABS: CALCIUM 8.9 mg/dL (8.5-10.1); CREATININE 0.9 mg/dL (0.6-1.0); GFR 71.7; POTASSIUM 3.5 mmol/L (3.5-5.1)
[2019-12-10 21:49] LABS: ALBUMIN 3.5 g/dL (3.4-5.0); ALBUMIN/GLOBULIN RATIO 0.9 (1.0-1.7); TOTAL BILIRUBIN 0.2 mg/dL (0.2-1.0); TOTAL PROTEIN 7.4 g/dL (6.4-8.2)
[2019-12-10 21:51] LABS: BILIRUBIN,URINE NEG (NEG); CLARITY,URINE CLEAR; COLOR,URINE YELLOW; GLUCOSE,URINE NEG (NEG)
[2019-12-10 21:52] LABS: NITRITE,URINE NEG (NEG); UROBILINOGEN,URINE 0.2 mg/dL (0.2 mg/dL)
[2019-12-10 22:03] LABS: BACTERIA,URINE FEW /HPF (0-FEW); RBC,URINE RARE /HPF (0-2); WBC,URINE OCC /HPF (0-4)
[2019-12-10 22:25] VITALS: BP 144/85
--- NOTE | 2019-12-14 15:46 | NUR ---
IP: attempt to notify patient of COVID result, left call back message.
== END 2019-12-10 22:30 | disposition home or self-care (01) ==
LOC: ER 20:16
DX: R05 Cough (principal); R50.9 Fever, unspecified; R06.02 Shortness of breath; Z20.828 Contact with and (suspected) exposure to other viral communicable diseases; E78.00 Pure hypercholesterolemia, unspecified; I11.9 Hypertensive heart disease without heart failure; E03.9 Hypothyroidism, unspecified
CPT/HCPCS: 36415; 71045; 80053; 81001; 81025; 83605; 85025; 87040; 99284; U0003

== ENCOUNTER 2020-01-10 06:30 | Emergency (ER) | payer OTHER ==
--- NOTE | 2020-01-10 07:18 | PHYS DOC ---
Past History Past Medical History: Anxiety, Bipolar, Depression, High Cholesterol, Heart Disease, Hypertension, Hypothyroid Past Surgical History: Cholecystectomy, Smoking: Non-smoker Alcohol Use: None Drug Use: Marijuana General Adult EDM: Chief Complaint: FLANK PAIN. HPI: HPI: Patient is a 34-year-old female with history of frequent UTIs, hypertension, hyperlipidemia, tubal ligation, presents to the ED with 1 week of intermittent bilateral flank pain. Patient states that pain was first worse on her right and now worse on her left but still bilateral. Patient states that pain radiates to her groin. Associated nausea, vomiting, intermittent fevers, or dysuria. States that she her last menstrual period just ended, however it was [employer] and brown colored which is not normal for her. Moderate severity. Patient was seen by another care provider which reported her UA only showed proteins and ketones. Denies any SOB or chest pain. Review of Systems: Review of Systems: Constitutional: Denies fever or chills Eyes: Denies redness or eye pain HENT: Denies nasal congestion or sore throat Respiratory: Denies cough or shortness of breath Cardiovascular: Denies chest pain or palpitations GI: Reports flank pain, abdominal pain, nausea, and vomiting : Reports dysuria; Denies hematuria Musculoskeletal: Denies back pain or joint pain Integument: Denies rash or skin lesions Neurologic: Denies headache, focal weakness or sensory changes Complete systems were reviewed and found to be within normal limits, except as documented in this note. Allergies: Allergies: Allergies Coded Allergies Type Severity Reaction Last Updated Verified No Known Drug Allergies 10/21/19 No Physical Exam: PE: Constitutional: Well developed, well nourished, no acute distress, non-toxic appearance HENT: Normocephalic, atraumatic Eyes: PERRL, EOMI, conjunctiva normal, no discharge Neck: Normal range of motion, no tenderness, supple Lungs & Thorax: No respiratory distress, equal chest rise and fall Abdomen: Soft, no tenderness, no guarding/rebound tenderness/distention Skin: Warm, dry, no erythema, no rash Back: Bilateral CVA tenderness, no midline tenderness Extremities: No tenderness, ROM intact, no edema Neurologic: Alert and oriented X 3, normal motor function, normal sensory function, no focal deficits noted Psychologic: Affect normal, judgment normal EKG: EKG: [] Radiology/Procedures: Radiology/Procedures: [] Course & Med Decision Making: Course & Med Decision Making Pertinent Labs and Imaging studies reviewed. (See chart for details) Pt is a 34 y/o female who presents with bilateral flank pain for a week with dysuria. UA showed 20-40 WBCs. There are signs of possible contamination. Given history and symptoms will empirically treat for pyelonephritis. Patient able to contact PCP regarding recent lab draw. PCP reports labs without acute findings. Symptomatic treatment provided. Empiric antibiotic initiated. Patient stable for discharge with outpatient follow-up with PCP/Urologist. Discussed findings and plan with patient, who acknowledges understanding and agreement. Dragon Disclaimer: [employer] Disclaimer: This electronic medical record was generated, in whole or in part, using a voice recognition dictation system. Departure Departure: Impression: Primary Impression: Pyelonephritis Disposition: 01 DC HOME SELF CARE/HOMELESS Condition: STABLE Referrals: PCP,UNKNOWN (PCP) Patient Instructions: Pyelonephritis, Adult, [id number] Additional Instructions: Given your prior history and history of frequent UTIs, you may benefit from an evaluation with an Urologist. Please discuss with your family physician and/or insurance for a referral. Increase fluid hydration. Please take over the counter Tylenol and/or Ibuprofen for pain. Scripts Ondansetron (ONDANSETRON ODT) 4 Mg Tab.rapdis 1 TAB PO PRN Q6-8HRS PRN for NAUSEA, #16 TAB Prov: BRANDIE GUZMAN DO 01/10/20 Cephalexin (KEFLEX) 500 Mg Capsule 1 CAP PO TID for Pyelonephritis for 10 Days, #30 CAP 0 Refills Prov: BRANDIE GUZMAN DO 01/10/20 Phenazopyridine Hcl (PYRIDIUM) 200 Mg Tablet 200 MG PO TID for urinary tract infection for 2 Days, #6 TAB Prov: BRANDIE GUZMAN DO 01/10/20 BRANDIE GUZMAN DO Jan 10, 2020 07:18
[2020-01-10 07:37] LABS: BACTERIA,URINE MOD /HPF (0-FEW); BILIRUBIN,URINE NEG (NEG); CLARITY,URINE HAZY; COLOR,URINE YELLOW; GLUCOSE,URINE NEG (NEG); NITRITE,URINE NEG (NEG); SQUAMOUS EPITHELIAL CELL,UR MOD /LPF; UROBILINOGEN,URINE 0.2 mg/dL (0.2 mg/dL); WBC,URINE 20-40 /HPF (0-4)
[2020-01-10] MEDS ORDERED: PHEN-318 PO (08:00)
[2020-01-10] MEDS ORDERED: CEPH-264 PO (08:00)
[2020-01-10] MEDS ORDERED: ONDANSETRON ODT 4 MG TAB.RAPDIS PO ONE (08:00)
[2020-01-10] MEDS ORDERED: PHENAZOPYRIDINE 200 MG TABLET. PO ONE (08:00)
[2020-01-10] MEDS ORDERED: CEPHALEXIN 250 MG CAPSULE PO ONE (08:00)
[2020-01-10] MEDS ORDERED: ONDA4TAB12 PO (08:00)
[2020-01-10 08:11] VITALS: BP 161/102
== END 2020-01-10 08:16 | disposition home or self-care (01) ==
LOC: ER 06:30
DX: N12 Tubulo-interstitial nephritis, not specified as acute or chronic (principal); R11.2 Nausea with vomiting, unspecified; R30.0 Dysuria; F41.9 Anxiety disorder, unspecified; F32.9 Major depressive disorder, single episode, unspecified; E78.00 Pure hypercholesterolemia, unspecified; I11.9 Hypertensive heart disease without heart failure; E03.9 Hypothyroidism, unspecified; F12.90 Cannabis use, unspecified, uncomplicated; Z90.49 Acquired absence of other specified parts of digestive tract; Z98.890 Other specified postprocedural states
CPT/HCPCS: 81001; 81025; 87086; 99284; Q0162

== ENCOUNTER → 2020-01-15 | Outpatient (CLI) | payer OTHER ==
[2020-01-10 08:11] VITALS: BP 161/102
[~2020-01-15] MED LIST changes: +CEPH-264 PO; +ONDA4TAB12 PO; +PHEN-318 PO
--- NOTE | 2020-01-15 13:30 | RAD ---
PQRS Compliance Statement: One or more of the following individualized dose reduction techniques were utilized for this examination: 1. Automated exposure control 2. Adjustment of the mA and/or kV according to patient size 3. Use of iterative reconstruction technique CT abdomen/pelvis without contrast 01/15/2020 1:00 PM INDICATION: Left flank pain COMPARISON: None available TECHNIQUE: Multiple axial CT images of the abdomen and pelvis were obtained without intravenous contrast. Coronal and sagittal reformats are provided. FINDINGS: Visualized portions of the lung bases are clear. Heart size is within normal limits. Evaluation of the solid abdominal viscera is limited by lack of intravenous contrast. No suspicious hepatic masses are identified. Spleen, bilateral adrenal glands, and pancreas are normal in appearance. Gallbladder surgically absent. Abdominal aorta is normal in course and caliber. No pathologically enlarged lymph nodes are identified in abdomen and pelvis. There is no free fluid or free intraperitoneal air. Small and large bowel are normal in caliber. There is no evidence for bowel obstruction. There are no pericolonic inflammatory changes. A normal, nondilated appendix is visualized without adjacent inflammatory changes. The kidneys are relatively symmetric in appearance. There is no suspicious renal mass within the limitations of a noncontrast examination. There is no hydronephrosis. There are no calculi within the kidneys, ureters or urinary bladder. Urinary bladder is within normal limits given degree of distention. Uterus and adnexa are normal. Follicular changes are identified in the right adnexa with a right follicle measuring 1.8 cm. No suspicious osseous abnormality. IMPRESSION: No evidence for obstructive uropathy. Electronically signed by: Vale Gonsalez MD (01/15/2020 1:27 PM) [facility]
== END ==
LOC: CT 12:47
PROVIDERS: ATTEND Clinical Nurse Specialist Family Health
DX: R10.10 Upper abdominal pain, unspecified (principal); N20.0 Calculus of kidney; R11.2 Nausea with vomiting, unspecified
CPT/HCPCS: 74176

== ENCOUNTER → 2020-07-11 | Outpatient (CLI) | payer OTHER | LOC: LAB 12:19 | PROVIDERS: ATTEND Internal Medicine Hematology & Oncology | DX: Z13.29 Encounter for screening for other suspected endocrine disorder (principal); D50.0 Iron deficiency anemia secondary to blood loss (chronic) | CPT/HCPCS: 82607; 82728; 82746; 83540; 83550; 84443 ==

== ENCOUNTER 2020-07-15 16:16 | Emergency (ER) | payer OTHER ==
[~2020-07-15] VITALS: Ht 162.6 cm; Wt 85.2 kg
[2020-07-15] MEDS ORDERED: ONDANSETRON PF 4 MG/2 ML VIAL. IVP ONE (16:45)
[2020-07-15] MEDS ORDERED: FAMOTIDINE 20 MG/2 ML VIAL IVP ONE (16:45)
[2020-07-15] MEDS ORDERED: IV NORMAL SALINE 1,000ML 1,000 ML IV ONE (16:45)
[2020-07-15 17:18] LABS: CALCIUM 9.5 mg/dL (8.5-10.1); CREATININE 0.9 mg/dL (0.6-1.0); GFR 71.7; POTASSIUM 3.3 mmol/L (3.5-5.1)
[2020-07-15 17:21] LABS: BASO # 0.2 x10^3/uL (0.0-0.2); BASO % 1 % (0-3); EOS # 0.2 x10^3/uL (0.0-0.7); EOS % 2 % (0-3); HEMATOCRIT 41.7 % (36.0-47.0); HEMOGLOBIN 13.4 g/dL (12.0-15.5); LYMPH # 2.8 x10^3/uL (1.0-4.8); LYMPH % 21 % (24-48); MEAN CORPUSCULAR HEMOGLOBIN 25 pg (25-35); MEAN CORPUSCULAR HGB CONC 32 g/dL (31-37); MEAN CORPUSCULAR VOLUME 79 fL (79-100); MONO # 0.9 x10^3/uL (0.0-1.1); MONO % 6 % (0-9); NEUT # 9.5 x10^3uL (1.8-7.7); NEUT % 70 % (31-73); PLATELET COUNT 282 x10^3/uL (140-400); RED BLOOD COUNT 5.31 x10^6/uL (3.50-5.40); RED CELL DISTRIBUTION WIDTH 14.6 % (11.5-14.5); WHITE BLOOD COUNT 13.5 x10^3/uL (4.0-11.0)
[2020-07-15 17:24] LABS: MAGNESIUM 1.8 mg/dL (1.8-2.4); TOTAL BILIRUBIN 0.6 mg/dL (0.2-1.0); TOTAL PROTEIN 8.2 g/dL (6.4-8.2)
[2020-07-15 17:40] LABS: BILIRUBIN,URINE NEG (NEG); CLARITY,URINE CLEAR; COLOR,URINE YELLOW; GLUCOSE,URINE NEG (NEG); NITRITE,URINE NEG (NEG); RBC,URINE 0 /HPF (0-2); UROBILINOGEN,URINE 0.2 mg/dL (0.2 mg/dL)
[2020-07-15 17:41] LABS: BACTERIA,URINE FEW /HPF (0-FEW); SQUAMOUS EPITHELIAL CELL,UR OCC /LPF
[2020-07-15] MEDS ORDERED: LIDO:MAALOX 1:1 20 ML SINGLE DOSE. PO ONE (17:45)
[2020-07-15] MEDS ORDERED: ONDA4TAB12 PO (18:02)
[2020-07-15] MEDS ORDERED: SUCR1TAB35 PO (18:02)
[2020-07-15] MEDS ORDERED: HYOS0.1265 SL (18:02)
--- NOTE | 2020-07-15 18:02 | PHYS DOC ---
Past History Past Medical History: Anxiety, Bipolar, Depression, High Cholesterol, Heart Disease, Hypertension, Hypothyroid Past Surgical History: Cholecystectomy, Smoking: Non-smoker Alcohol Use: None Drug Use: Marijuana General Adult EDM: Chief Complaint: GI PROBLEM HPI: HPI: Patient is a [age] year old [sex] who presents with [] Review of Systems: Review of Systems: Constitutional: Denies fever or chills Eyes: Denies redness or eye pain HENT: Denies nasal congestion or sore throat Respiratory: Denies cough or shortness of breath Cardiovascular: Denies chest pain or palpitations GI: Denies abdominal pain, nausea, or vomiting : Denies dysuria or hematuria Musculoskeletal: Denies back pain or joint pain Integument: Denies rash or skin lesions Neurologic: Denies headache, focal weakness or sensory changes Complete systems were reviewed and found to be within normal limits, except as documented in this note. Current Medications: Current Meds: Current Medications Medications (Trade) Dose Ordered Sig/Laura Start Time Stop Time Status Last Admin Dose Admin Famotidine (Pepcid Vial) 20 mg 1X ONCE 07/15/20 16:45 07/15/20 16:46 DC 07/15/20 16:59 20 MG Multi-Ingredient Mouthwash/Gargle (Gi Cocktail) 20 ml 1X ONCE 07/15/20 17:45 07/15/20 17:46 DC 07/15/20 17:44 20 ML Ondansetron HCl (Zofran) 4 mg 1X ONCE 07/15/20 16:45 07/15/20 16:46 DC 07/15/20 16:59 4 MG Sodium Chloride 1,000 ml @ 1,000 mls/hr 1X ONCE 07/15/20 16:45 07/15/20 17:44 DC 07/15/20 16:59 1,000 MLS/HR Allergies: Allergies: Allergies Coded Allergies Type Severity Reaction Last Updated Verified No Known Drug Allergies 10/21/19 No Physical Exam: PE: Constitutional: Well developed, well nourished, no acute distress, non-toxic appearance HENT: Normocephalic, atraumatic Eyes: PERRL, EOMI, conjunctiva normal, no discharge Neck: Normal range of motion, no tenderness, supple Lungs & Thorax: No respiratory distress, equal chest rise and fall Abdomen: Soft, no tenderness Skin: Warm, dry, no erythema, no rash Back: No tenderness, no CVA tenderness Extremities: No tenderness, ROM intact, no edema Neurologic: Alert and oriented X 3, normal motor function, normal sensory function, no focal deficits noted Psychologic: Affect normal, judgment normal Current Patient Data: Labs: Laboratory Tests Test 07/15/20 16:55 White Blood Count 13.5 x10^3/uL (4.0-11.0) H Red Blood Count 5.31 x10^6/uL (3.50-5.40) Hemoglobin 13.4 g/dL (12.0-15.5) Hematocrit 41.7 % (36.0-47.0) Mean Corpuscular Volume 79 fL (79-100) Mean Corpuscular Hemoglobin 25 pg (25-35) Mean Corpuscular Hemoglobin Concent 32 g/dL (31-37) Red Cell Distribution Width 14.6 % (11.5-14.5) H Platelet Count 282 x10^3/uL (140-400) Neutrophils (%) (Auto) 70 % (31-73) Lymphocytes (%) (Auto) 21 % (24-48) L Monocytes (%) (Auto) 6 % (0-9) Eosinophils (%) (Auto) 2 % (0-3) Basophils (%) (Auto) 1 % (0-3) Neutrophils # (Auto) 9.5 x10^3uL (1.8-7.7) H Lymphocytes # (Auto) 2.8 x10^3/uL (1.0-4.8) Monocytes # (Auto) 0.9 x10^3/uL (0.0-1.1) Eosinophils # (Auto) 0.2 x10^3/uL (0.0-0.7) Basophils # (Auto) 0.2 x10^3/uL (0.0-0.2) Urine Collection Type Unknown Urine Color Yellow Urine Clarity Clear Urine pH 5.5 Urine Specific [place] 1.020 Urine Protein 30 mg/dl (NEG-TRACE) Urine Glucose (UA) Neg mg/dL (NEG) Urine Ketones (Stick) Neg mg/dL (NEG) Urine Blood Trace (NEG) Urine Nitrite Neg (NEG) Urine Bilirubin Neg (NEG) Urine Urobilinogen Dipstick 0.2 mg/dL (0.2 mg/dL) Urine Leukocyte Esterase Trace (NEG) Urine RBC 0 /HPF (0-2) Urine WBC 5-10 /HPF (0-4) Urine Squamous Epithelial Cells Occ /LPF Urine Bacteria Few /HPF (0-FEW) Sodium Level 137 mmol/L (136-145) Potassium Level 3.3 mmol/L (3.5-5.1) L Chloride Level 98 mmol/L (98-107) Carbon Dioxide Level 26 mmol/L (21-32) Anion Gap 13 (6-14) Blood Urea Nitrogen 11 mg/dL (7-20) Creatinine 0.9 mg/dL (0.6-1.0) Estimated GFR (Cockcroft-Gault) 71.7 BUN/Creatinine Ratio 12 (6-20) Glucose Level 110 mg/dL (70-99) H Calcium Level 9.5 mg/dL (8.5-10.1) Magnesium Level 1.8 mg/dL (1.8-2.4) Total Bilirubin 0.6 mg/dL (0.2-1.0) Aspartate Amino Transferase (AST) 29 U/L (15-37) Alanine Aminotransferase (ALT) 44 U/L (14-59) Alkaline Phosphatase 120 U/L (46-116) H Total Protein 8.2 g/dL (6.4-8.2) Albumin 4.0 g/dL (3.4-5.0) Albumin/Globulin Ratio 1.0 (1.0-1.7) Lipase 55 U/L (73-393) L Vital Signs: Vital Signs Date Time Temp Pulse Resp B/P (MAP) Pulse Ox O2 Delivery O2 Flow Rate FiO2 07/15/20 16:29 98.5 98 16 97 Room Air EKG: EKG: [] Radiology/Procedures: Radiology/Procedures: [] Heart Score: C/O Chest Pain: N/A Course & Med Decision Making: Course & Med Decision Making Pertinent Labs and Imaging studies reviewed. (See chart for details) Patient stable for discharge with outpatient follow-up with PCP. Discussed findings and plan with patient, who acknowledges understanding and agreement. Barney Disclaimer: Barney Disclaimer: This electronic medical record was generated, in whole or in part, using a voice recognition dictation system. Departure Departure: Impression: Primary Impression: Epigastric abdominal pain Disposition: 01 HOME / SELF CARE / HOMELESS Condition: STABLE Referrals: JAVIER PINEDA APRN (PCP) AMAYA DIAS MD Patient Instructions: Abdominal Pain, Mnot-nm-Teax, Gastritis, Adult, Wrmh-yx-Xetr Scripts Sucralfate (CARAFATE) 1 Gm Tablet 1 GM PO TIDACHC for Gastritis, #60 TAB Prov: BRANDIE GUZMAN DO 07/15/20 Hyoscyamine Sulfate (LEVSIN-SL) 0.125 Mg Tab.subl 0.125 MG SL Q4-6HRS PRN for PAIN, #14 TAB Prov: BRANDIE GUZMAN DO 07/15/20 Ondansetron (ONDANSETRON ODT) 4 Mg Tab.rapdis 1 TAB PO PRN Q6-8HRS PRN for NAUSEA, #16 TAB Prov: BRANDIE GUZMAN DO 07/15/20 BRANDIE GUZMAN DO July 15, 2020 18:02
[2020-07-15 18:09] VITALS: BP 157/99
== END 2020-07-15 18:10 | disposition home or self-care (01) ==
LOC: ER 16:16
DX: R10.13 Epigastric pain (principal); F41.9 Anxiety disorder, unspecified; F31.9 Bipolar disorder, unspecified; E78.00 Pure hypercholesterolemia, unspecified; I11.9 Hypertensive heart disease without heart failure; E03.9 Hypothyroidism, unspecified; Z90.49 Acquired absence of other specified parts of digestive tract; Z98.890 Other specified postprocedural states
CPT/HCPCS: 36415; 80053; 81001; 83690; 83735; 85025; 87086; 96361; 96374; 96375; 99284; J2405; J3490; J7030

== ENCOUNTER 2020-10-26 09:18 | Emergency (ER) | payer OTHER ==
[~2020-10-26] VITALS: Ht 162.6 cm; Wt 85.2 kg
[~2020-10-26 09:18] MED LIST changes: +HYOS0.1265 SL; +SUCR1TAB35 PO
--- NOTE | 2020-10-26 09:44 | PHYS DOC ---
Past History Past Medical History: Anxiety, Bipolar, Depression, High Cholesterol, Heart Disease, Hypertension, Hypothyroid Past Surgical History: Cholecystectomy, Smoking: Non-smoker Alcohol Use: None Drug Use: Marijuana Adult General Chief Complaint Chief Complaint: Palpitations HPI HPI Patient is a 34-year-old female presenting for palpitations. Reports symptom onset 3 days prior shortly after getting her second round of the "[place]" vaccine. States she has had constant feelings of palpitations and occasional sweats ever since. Nothing known makes better or worse. She feels anxious, reports she has had an anxiety attack in the past and symptoms today feel similar but she is unsure. Reports she is otherwise healthy, states she is being treated for high blood pressure on numerous blood pressure medications, iron deficiency anemia for which she takes iron supplements, takes antihistamines occasionally for seasonal allergies only. She admits she has been compliant with all medications with no recent antibiotic use, hospital exposure, recent sick contacts or travel. She has been afebrile. Review of Systems Review of Systems Fourteen body systems of review of systems have been reviewed. See HPI for pertinent positives and negative responses, other diaz all other systems are negative, non-pertinent or non-contributory Allergies Allergies Allergies Coded Allergies Type Severity Reaction Last Updated Verified No Known Drug Allergies 10/21/19 No Physical Exam Physical Exam Constitutional: Well developed, well nourished, no acute distress, non-toxic a ppearance. HENT: Normocephalic, atraumatic, bilateral external ears normal, oropharynx moist, no oral exudates, nose normal. Eyes: PERRLA, EOMI, conjunctiva normal, no discharge. Neck: Normal range of motion, no tenderness, supple, no stridor. Cardiovascular: Heart rate regular, sinus rhythm, no murmurs rubs or gallops Lungs & Thorax: Bilateral breath sounds clear to auscultation Abdomen: Bowel sounds normal, soft, no tenderness, no masses, no pulsatile masses. Nonsurgical abdomen, no peritoneal signs Skin: Warm, dry, no erythema, no rash. Back: No tenderness, no CVA tenderness. Extremities: No tenderness, no cyanosis, no clubbing, ROM intact, no edema. Neurologic: Alert and oriented X 3, grossly normal motor & sensory function, no focal deficits noted. Psychologic: Anxious affect and mood Current Patient Data Lab Results Laboratory Tests Test 10/26/20 10:35 White Blood Count 9.1 x10^3/uL Red Blood Count 4.74 x10^6/uL Hemoglobin 12.1 g/dL Hematocrit 37.4 % Mean Corpuscular Volume 79 fL Mean Corpuscular Hemoglobin 26 pg Mean Corpuscular Hemoglobin Concent 32 g/dL Red Cell Distribution Width 14.8 % Platelet Count 245 x10^3/uL Neutrophils (%) (Auto) 70 % Lymphocytes (%) (Auto) 19 % Monocytes (%) (Auto) 7 % Eosinophils (%) (Auto) 3 % Basophils (%) (Auto) 1 % Neutrophils # (Auto) 6.4 x10^3uL Lymphocytes # (Auto) 1.7 x10^3/uL Monocytes # (Auto) 0.7 x10^3/uL Eosinophils # (Auto) 0.3 x10^3/uL Basophils # (Auto) 0.1 x10^3/uL Sodium Level 138 mmol/L Potassium Level 4.0 mmol/L Chloride Level 104 mmol/L Carbon Dioxide Level 26 mmol/L Anion Gap 8 Blood Urea Nitrogen 14 mg/dL Creatinine 0.8 mg/dL Estimated GFR (Cockcroft-Gault) 82.1 BUN/Creatinine Ratio 18 Glucose Level 104 mg/dL Calcium Level 8.6 mg/dL Total Bilirubin 0.3 mg/dL Aspartate Amino Transf (AST/SGOT) 22 U/L Alanine Aminotransferase (ALT/SGPT) 38 U/L Alkaline Phosphatase 113 U/L Troponin I Quantitative < 0.017 ng/mL Total Protein 6.7 g/dL Albumin 3.7 g/dL Albumin/Globulin Ratio 1.2 EKG EKG EKG ordered and interpreted by myself at 0936 hrs. as sinus rhythm at 74 bpm, unremarkable intervals, no axis deviation, no acute ischemic findings, no STEMI Radiology/Procedures Radiology/Procedures [] Heart Score C/O Chest Pain: No HEART Score for Chest Pain: HEART Score for Chest Pain Response (Comments) Value History Slighlty/Non-Suspicious 0 ECG Normal 0 Age >45 - < 65 1 Risk Factors 1 or 2 Risk Factors 1 Troponin < Normal Limit 0 Total 2 Risk Factors: Risk Factors: DM, Current or recent (<one month) smoker, HTN, HLP, family history of CAD, obesity. Risk Scores: Risk Factors: DM, Current or recent (<one month) smoker, HTN, HLP, family history of CAD, obesity. Course & Med Decision Making Course & Med Decision Making ABCs unremarkable. I disclosed entirety of ER findings and discussed most likely diagnosis of anxiety versus other likely benign/self-limiting issue. 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 Other diagnoses were discussed with patient such as ACS and p ulmonary embolism but deemed less likely causes of patient's presentation and unimpressive heart and PERC scores respectively. Plan of care discussed at length with need for close outpatient follow-up to review today's ER visit stressed. Patient's blood pressure elevated today, she reports she has been 100% compliant with all prescribed home medications for this but admits she does not check her blood pressure regularly in the outpatient setting. I advised her to continue medication compliance and to keep the blood pressure log with close follow-up with primary care physician this upcoming week for review. Strict return precautions were also discussed at length with good understanding by patient. Patient voiced understanding and agreement with the plan. Patient knows to come back for repeat evaluation if concerning signs or symptoms present prior to outpatient follow-up. Hemodynamically stable, ambulatory and well- appearing at time of disposition. Dragon Disclaimer Dragon Disclaimer This electronic medical record was generated, in whole or in part, using a voice recognition dictation system. Departure Departure: Impression: Primary Impression: Anxiety about health Additional Impressions: Palpitations HTN (hypertension) Disposition: HOME / SELF CARE / HOMELESS Condition: STABLE Referrals: JAVIER PINEDA APRN (PCP) Patient Instructions: Palpitations, [id number] Additional Instructions: You were seen for palpitations. Your workup did not show any acute abnormalities today, but does not indicate that you do not have underlying cardiovascular disease or other concerning abnormalities. You do need to follow up with your primary doctor for further evaluation and treatment. In addition, it is advised to keep a dedicated blood pressure log for your primary care physician to review this upcoming week as home medication adjustments might be indicated. You should return to the ED if you develop worsening chest pain, shortness of breath, fever, abnormal sweating, leg swelling, or any other new or concerning symptoms. Problem Qualifiers BRIT FREEMAN DO Oct 26, 2020 09:44
--- NOTE | 2020-10-26 10:10 | EKG ---
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
[2020-10-26 11:00] LABS: BASO # 0.1 x10^3/uL (0.0-0.2); BASO % 1 % (0-3); EOS # 0.3 x10^3/uL (0.0-0.7); EOS % 3 % (0-3); HEMATOCRIT 37.4 % (36.0-47.0); HEMOGLOBIN 12.1 g/dL (12.0-15.5); LYMPH # 1.7 x10^3/uL (1.0-4.8); LYMPH % 19 % (24-48); MEAN CORPUSCULAR HEMOGLOBIN 26 pg (25-35); MEAN CORPUSCULAR HGB CONC 32 g/dL (31-37); MEAN CORPUSCULAR VOLUME 79 fL (79-100); MONO # 0.7 x10^3/uL (0.0-1.1); MONO % 7 % (0-9); NEUT # 6.4 x10^3uL (1.8-7.7); NEUT % 70 % (31-73); PLATELET COUNT 245 x10^3/uL (140-400); RED BLOOD COUNT 4.74 x10^6/uL (3.50-5.40); RED CELL DISTRIBUTION WIDTH 14.8 % (11.5-14.5); WHITE BLOOD COUNT 9.1 x10^3/uL (4.0-11.0)
[2020-10-26 11:04] LABS: CALCIUM 8.6 mg/dL (8.5-10.1); CREATININE 0.8 mg/dL (0.6-1.0); GFR 82.1
[2020-10-26 11:12] LABS: ALBUMIN 3.7 g/dL (3.4-5.0); ALBUMIN/GLOBULIN RATIO 1.2 (1.0-1.7); TOTAL BILIRUBIN 0.3 mg/dL (0.2-1.0); TOTAL PROTEIN 6.7 g/dL (6.4-8.2)
[2020-10-26 11:55] VITALS: BP 171/103
== END 2020-10-26 11:55 | disposition home or self-care (01) ==
LOC: ER 09:18
DX: R00.2 Palpitations (principal); F41.9 Anxiety disorder, unspecified; I10 Essential (primary) hypertension; F32.9 Major depressive disorder, single episode, unspecified; E78.5 Hyperlipidemia, unspecified; F12.10 Cannabis abuse, uncomplicated; Z90.49 Acquired absence of other specified parts of digestive tract
CPT/HCPCS: 36415; 80053; 84484; 85025; 93005; 99284-25